=== PATIENT | female | born 1960 | race Caucasian/White ===

== ENCOUNTER 2023-10-16 07:39 | Outpatient (CLI) | payer BC ==
[2023-10-16] MEDS ORDERED: Iopamidol 370 76% 100 ML VIAL ONE (09:02)
== END 2023-10-16 07:40 | disposition home or self-care (01) ==
LOC: BICCT 07:39
PROVIDERS: ATTEND Internal Medicine Hematology & Oncology
DX: C43.71 Malignant melanoma of right lower limb, including hip (principal)
CPT/HCPCS: 71260; 74177; 82565